=== PATIENT | male | born 1945 | race Caucasian/White ===

== ENCOUNTER 2023-06-17 16:29 | Inpatient (IN) | payer OTHER ==
[~2023-06-17] VITALS: Ht 167.6 cm; Wt 49.9 kg
[~2023-06-17 16:29] MED LIST: ALEN70 PO; ASPI81CH PO; CYAN500 PO; DOC250 PO; Depakene250 MG PO; Docu Liqui50 MG/5 ML PO; EXELON1 EACH TD; FOLI1 PO; HYDCHL12.5; Hair, Skin & N1 EACH PO; IBUP800 PO; LEVE500 PO; LISI20 PO; LISI5 PO; LORA1 PO; Lopressor 25 mg25 MG PO; MAPAP16 MG/0.5 PO; MEMA5TAB PO; METO25ER PO; OLAN10 PO; OLAN5 PO; PHENY50CH PO; PRED20 PO; PRED5 PO; QUET25 PO; SODCHL1 PO; THERA-D2000 UNIT PO; THIA100 PO; TRAM50 PO; TRIA15CR3 TOP; UREA TOP; Ultra Mide 25120 ML TOP; VALP250 PO
[2023-06-17 17:18] LABS: BASOPHILS ABSOLUTE AUTO 0.02 K/mm3 (0.00-0.23); BASOPHILS PERCENT AUTO 0 % (0-2); EOSINOPHILS ABSOLUTE AUTO 0.01 K/mm3 (0.00-0.68); EOSINOPHILS PERCENT AUTO 0 % (0-6); Hematocrit 26.3 % (37.0-53.0); Hemoglobin 8.7 g/dL (13.5-17.5); IMMATURE GRAN ABSOLUTE AUTO 0.03 K/mm3 (0.00-0.10); IMMATURE GRAN PERCENT AUTO 0 % (0-1); LYMPHOCYTES ABSOLUTE AUTO 1.01 K/mm3 (0.84-5.20); LYMPHOCYTES PERCENT AUTO 12 % (21-46); MONOCYTES ABSOLUTE AUTO 0.47 K/mm3 (0.16-1.47); MONOCYTES PERCENT AUTO 5 % (4-13); Mean Corpuscular HGB 28.2 pg (26.0-34.0); Mean Corpuscular HGB Conc 33.1 g/dL (31.5-36.5); Mean Corpuscular Volume 85 fL (80-100); Mean Platelet Volume 9.2 fL (9.1-12.4); NEUTROPHILS PERCENT AUTO 82 % (41-73); Platelet Count 221 K/mm3 (150-400); RDW Coefficient Variation 16.1 % (11.7-14.2); RDW Standard Deviation 50.6 fL (35.1-46.3); Red Blood Cell Count 3.08 M/mm3 (4.30-5.90); White Blood Cell Count 8.74 K/mm3 (4.00-11.30)
[2023-06-17 17:52] LABS: Albumin, Blood 2.6 g/dL (3.4-5.0); Albumin/Globulin Ratio 1.1 (0.8-1.8); Bilirubin, Total 0.3 mg/dL (0.1-1.0); Bun/Creatinine Ratio 12.5 (12.0-20.0); Calcium, Blood 8.1 mg/dL (8.5-10.1); Creatinine, Blood 1.36 mg/dL (0.60-1.20); Globulin, Blood 2.4 g/dL (2.2-4.0); Potassium, Blood 4.4 mmol/L (3.5-5.5)
[2023-06-17 19:22] LABS: Prothrombin Time Results 10.5 Sec (9.7-11.5)
[2023-06-17 22:27] VITALS: BP 118/58
[2023-06-17 22:58] LABS: Source, Urine Clean Catch
[2023-06-17 23:08] LABS: Bilirubin, Urine Neg (Neg); Blood, Urine Neg (Neg); Glucose Qualitative, Urine Neg (Neg); Ketones, Urine Neg (Neg); Leukocyte Esterase, Urine Neg (Neg); Nitrite, Urine Neg (Neg); Protein, Urine Neg (Neg); Urobilinogen, Urine NORM (Normal)
[2023-06-17 23:18] LABS: Appearance, Urine Clear (Clear); Color, Urine Yellow (P-Yellow)
[2023-06-18 03:13] VITALS: BP 99/61
[2023-06-18 05:32] LABS: BASOPHILS ABSOLUTE AUTO 0.01 K/mm3 (0.00-0.23); BASOPHILS PERCENT AUTO 0 % (0-2); EOSINOPHILS ABSOLUTE AUTO 0.01 K/mm3 (0.00-0.68); EOSINOPHILS PERCENT AUTO 0 % (0-6); Hematocrit 22.6 % (37.0-53.0); Hemoglobin 7.8 g/dL (13.5-17.5); IMMATURE GRAN ABSOLUTE AUTO 0.01 K/mm3 (0.00-0.10); IMMATURE GRAN PERCENT AUTO 0 % (0-1); LYMPHOCYTES ABSOLUTE AUTO 0.96 K/mm3 (0.84-5.20); LYMPHOCYTES PERCENT AUTO 18 % (21-46); MONOCYTES ABSOLUTE AUTO 0.44 K/mm3 (0.16-1.47); MONOCYTES PERCENT AUTO 8 % (4-13); Mean Corpuscular HGB 28.4 pg (26.0-34.0); Mean Corpuscular HGB Conc 34.5 g/dL (31.5-36.5); Mean Corpuscular Volume 82 fL (80-100); Mean Platelet Volume 9.4 fL (9.1-12.4); NEUTROPHILS ABSOLUTE AUTO 4.06 K/mm3 (1.96-9.15); NEUTROPHILS PERCENT AUTO 74 % (41-73); Platelet Count 257 K/mm3 (150-400); RDW Coefficient Variation 15.8 % (11.7-14.2); RDW Standard Deviation 47.6 fL (35.1-46.3); Red Blood Cell Count 2.75 M/mm3 (4.30-5.90); White Blood Cell Count 5.49 K/mm3 (4.00-11.30)
--- NOTE | 2023-06-18 06:14 | NUR ---
SHIFT SUMMARY PT IS HERE WITH A RIGHT HIP FX AFTER HAVING A GLF. PT HAS SOME BRUISING ON HIS RIGHT QUAKER AND HANDS/WRISTS/FOREARMS, BUT THE REST OF HIS SKIN LOOKS GOOD AND HE IS NOT CURRENTLY ON BLOOD THINNERS. PT HAS HAD SOME URINE RETENTION ISSUES AND WAS STRAIGHT CATHED LAST NIGHT WITH AN OUTPUT OF 550 ML. PT IS ABLE TO URINATE, BUT HIS PVR IS SIGNIFICANT (>592 ML WHEN CATHED AND >344 ML THIS AM AFTER A 250 ML VOID). PT HAS BEEN NPO SINCE MIDNIGHT AWAITING POSSIBLE PROCEDURE. BED IS IN LOWEST POSITION, CALL LIGHT IS WITHIN REACH.
[2023-06-18 06:27] LABS: Magnesium, Blood 1.9 mg/dL (1.6-2.4); Percent Saturation 27.8 % (20.0-50.0)
[2023-06-18 06:28] LABS: Albumin, Blood 2.1 g/dL (3.4-5.0); Bilirubin, Total 0.3 mg/dL (0.1-1.0); Calcium, Blood 7.8 mg/dL (8.5-10.1); Creatinine, Blood 1.15 mg/dL (0.60-1.20); Globulin, Blood 2.1 g/dL (2.2-4.0); Potassium, Blood 4.2 mmol/L (3.5-5.5); Total Protein, Blood 4.2 g/dL (6.4-8.2)
[2023-06-18 07:17] VITALS: BP 113/57
[2023-06-18 14:29] VITALS: BP 122/70
--- NOTE | 2023-06-18 18:06 | NUR ---
SHIFT SUMMARY A/O X3- CURRENTLY AWAITING SURGERY FOR R HIP FX. PATIENT WAS NPO UNTIL ABOUT 2PM AND THIS RN SPOKE WITH DR. LAMBERT WHO WAS UNAWARE THAT THE PATIENT WAS WAITING FOR HER TO TAKE HIM TO THE OR. AT THIS TIME THIS RN WAS ORDERED TO GIVE THE PATIENT FOOD AND LET THIS PATIENT KNOW THAT HE WOULD POTENTIALLY GO TO SURGERY TOMORROW. THIS RN CALLED PATIENTS SON AND MADE HIM AWARE THAT THE PATIENT WOULD NOT BE GOING TODAY. PATIENT VOIDING IN URINAL AND REMAINED BEDREST THROUGHOUT THE SHIFT.
[2023-06-18 19:38] VITALS: BP 95/56
[2023-06-19] VITALS (19 sets, daily range): BP systolic 109–187; BP diastolic 62–126
[2023-06-19 05:29] LABS: Hematocrit 23.4 % (37.0-53.0); Mean Corpuscular HGB 28.3 pg (26.0-34.0); Mean Corpuscular HGB Conc 34.2 g/dL (31.5-36.5); Mean Corpuscular Volume 83 fL (80-100); Mean Platelet Volume 9.3 fL (9.1-12.4); Platelet Count 262 K/mm3 (150-400); RDW Coefficient Variation 15.7 % (11.7-14.2); RDW Standard Deviation 47.9 fL (35.1-46.3); Red Blood Cell Count 2.83 M/mm3 (4.30-5.90); White Blood Cell Count 6.86 K/mm3 (4.00-11.30)
[2023-06-19 05:48] LABS: Bun/Creatinine Ratio 15.4 (12.0-20.0); Calcium, Blood 7.6 mg/dL (8.5-10.1); Creatinine, Blood 0.98 mg/dL (0.60-1.20); Potassium, Blood 4.2 mmol/L (3.5-5.5)
--- NOTE | 2023-06-19 06:17 | NUR ---
SHIFT SUMMARY PT IS HERE FOR A RIGHT HIP FX FROM A GLF AT HOME. PT SHOULD BE GOING TO SURGERY TODAY AND HAS BEEN NPO SINCE MIDNIGHT. AT SHIFT CHANGE, PT WAS UNABLE TO URINATE. BLADDER SCAN PERFORMED AND SHOWED 561 ML HOLDING IN THE PT'S BLADDER. STRAIGHT CATH PERFORMED AND 400 ML OF URINE WAS ABLE TO COME OUT. AT 0510, PT WAS ABLE TO VOID 325 ML AND HIS PVR WAS ONLY 203 ML. PAIN WELL CONTROLLED WITH EMAR. VITAL SIGNS HAVE BEEN STABLE WITH NO ACUTE EVENTS OCCURRING OVERNIGHT. BED IS IN LOWEST POSITION, CALL LIGHT IS WITHIN REACH.
--- NOTE | 2023-06-19 11:24 | NUR ---
Pt resting in bed upon arrival. Pt is A&OX2. Pt unable to verbalize correct reason for hospital stay, and unable to verbalize correct year. Pt appears mildly agitated and states "I'm not wanting to answer questions right now". Ended visit to allow Pt to rest. Spoke with Primary RN and discussed case. Pt scheduled for surgery today. Pt's son is possibly at work today and plan is to for her to call son and provide update on plan. Spoke with RN Ways Operator Daryl and discussed case. Plan: [facility] planning with family when they arrive to visit.
--- NOTE | 2023-06-19 16:12 | NUR ---
PT IS VERY RESTLESS ATTEMPTING TO CALM HIM / RELAX HIM WONDERING IF PAIN RELATED AND UNABLE TO VOICE THAT IT IS PAIN . A LITTLE CALMER ONCE MEDICATED HE CAN TELL ME WHERE HE LIVES NOW HOLDING MY HAND
--- NOTE | 2023-06-19 16:54 | NUR ---
ASSUMED CARE FROM TJ, PATIENT BACK FROM PACU AT 1640. ON 2L NC, SATS ABOVE 93%. LUNG SOUNDS CLEAR AND DIMINSHED. AQUACEL TO R HIP C/D/I. CLEAN ATTENDS AND GOWN IN PLACE. IVF RUNNING. VSS. BED ALARM FOR SAFETY AND CALL LIGHT IN REACH.
[2023-06-20 02:05] VITALS: BP 151/88
[2023-06-20 05:09] LABS: Mean Corpuscular HGB 28.5 pg (26.0-34.0); Mean Corpuscular HGB Conc 34.6 g/dL (31.5-36.5); Mean Corpuscular Volume 82 fL (80-100); Mean Platelet Volume 9.5 fL (9.1-12.4); Platelet Count 307 K/mm3 (150-400); RDW Coefficient Variation 15.1 % (11.7-14.2); RDW Standard Deviation 45.6 fL (35.1-46.3); Red Blood Cell Count 3.16 M/mm3 (4.30-5.90); White Blood Cell Count 7.38 K/mm3 (4.00-11.30)
[2023-06-20 05:32] LABS: Bun/Creatinine Ratio 13.4 (12.0-20.0); Calcium, Blood 7.5 mg/dL (8.5-10.1); Creatinine, Blood 0.9 mg/dL (0.60-1.20)
[2023-06-20 07:04] VITALS: BP 186/101
--- NOTE | 2023-06-20 08:19 | NUR ---
SHIFT SUMMARY NOC. PT A/O X3 THIS SHIFT. PT UNAWARE OF DATE/TIME. PT MEDICATED FOR PAIN WITH RELIEF OF SX. PT VERY RESTLESS AND FIDGITS WITH BLANKETS. PT'S AQUACEL IS C/D/I WITH SCANT DRAINAGE ON DRESSING. PT RESTED WITH VERY SHORT BRIEF PERIODS OF REST. PT AWAKE MOST OF THE NIGHT. PT HAD A SITTER FOR SAFTEY AND CALL LIGHT IN REACH.
--- NOTE | 2023-06-20 10:15 | NUR ---
18G L WRIST IV REMOVED R/T INFILTRATION. CATHETER INTACT AT TIME OF REMOVAL. SOME REDNESS PRESSENT TO L WRIST. 18G LFA IV REMOVED R/T LEAKING. CATHETER INTACT AT TIME OF REMOVAL.
[2023-06-20] MEDS ORDERED: PHENY50CH PO (10:43)
[2023-06-20] MEDS ORDERED: B COMPLEX FORM0.4 MG PO (15:05)
[2023-06-20 17:28] VITALS: BP 120/62
--- NOTE | 2023-06-20 18:28 | NUR ---
SHIFT SUMMARY PT IS POD#1 FROM R HIP PINNING. PAIN HAS BEEN MANAGED WITH TYLENOL. PT HAS REQUIRED ASSISTANCE REPOSITIONING. PT HAS TOLERATED MEALS BUT DOES NOT LIKE THE PUREE DIET. HOME MEDICATION LIST UPDATED AND DISCUSSED CHANGES WITH DR. QUINONEZ TODAY. PT AWAKE AND RESTING IN BED, CALL LIGHT WITHIN REACH, BED ALARM IN PLACE.
[2023-06-20 19:29] VITALS: BP 96/63
[2023-06-21] VITALS (7 sets, daily range): BP systolic 90–131; BP diastolic 57–111
--- NOTE | 2023-06-21 04:49 | NUR ---
SHIFT SUMMARY NOC. PT S/P RIGHT HIP PINNING. A/O X3 THIS SHIFT. PT DENIED PAIN AT SITE. PT RESTLESS AFTER HAVING A BM, PT HAD 4 BM'S THIS SHIFT. PT'S AQUACEL WAS CHANGED THIS SHIFT AND IS C/D/I. PT RESTED WITH CALL LIGHT IN REACH AND BED ALARM ON FOR SAFETY.
[2023-06-21 05:32] LABS: BASOPHILS ABSOLUTE AUTO 0.02 K/mm3 (0.00-0.23); BASOPHILS PERCENT AUTO 0 % (0-2); EOSINOPHILS ABSOLUTE AUTO 0.07 K/mm3 (0.00-0.68); EOSINOPHILS PERCENT AUTO 1 % (0-6); Hematocrit 24.5 % (37.0-53.0); Hemoglobin 8.5 g/dL (13.5-17.5); IMMATURE GRAN ABSOLUTE AUTO 0.02 K/mm3 (0.00-0.10); IMMATURE GRAN PERCENT AUTO 0 % (0-1); LYMPHOCYTES ABSOLUTE AUTO 1.16 K/mm3 (0.84-5.20); LYMPHOCYTES PERCENT AUTO 16 % (21-46); MONOCYTES ABSOLUTE AUTO 0.61 K/mm3 (0.16-1.47); MONOCYTES PERCENT AUTO 9 % (4-13); Mean Corpuscular HGB 28.6 pg (26.0-34.0); Mean Corpuscular HGB Conc 34.7 g/dL (31.5-36.5); Mean Corpuscular Volume 83 fL (80-100); Mean Platelet Volume 9.5 fL (9.1-12.4); NEUTROPHILS ABSOLUTE AUTO 5.23 K/mm3 (1.96-9.15); NEUTROPHILS PERCENT AUTO 74 % (41-73); Platelet Count 331 K/mm3 (150-400); RDW Standard Deviation 44.7 fL (35.1-46.3); Red Blood Cell Count 2.97 M/mm3 (4.30-5.90); White Blood Cell Count 7.11 K/mm3 (4.00-11.30)
[2023-06-21 05:59] LABS: Bun/Creatinine Ratio 18.7 (12.0-20.0); Calcium, Blood 7.6 mg/dL (8.5-10.1); Creatinine, Blood 0.96 mg/dL (0.60-1.20); Percent Saturation 23.3 % (20.0-50.0); Potassium, Blood 4.1 mmol/L (3.5-5.5)
--- NOTE | 2023-06-21 18:37 | NUR ---
SHIFT SUMMARY PATIENT A/O X3 THIS SHIFT. POD2 R HIP PINNING. AQUACEL C/D/I. HAVING INCONTINENCE AND LOOSE STOOLS TODAY. TOLERATED DIET. PAIN MANAGED W/ TYLENOL. VSS. UP TO CHAIR W/ THERAPY. WILL REPORT TO ONCOMING RN.
[2023-06-22 03:01] VITALS: BP 119/65
--- NOTE | 2023-06-22 06:46 | NUR ---
SHIFT SUMMARY NOC. PT A/O X3 THIS SHIFT. PT VOIDING AND TOLERATING PO INTAKE. PT MEDICATED FOR PAIN WITH RELIEF OF SX. PT BLOOD PRESSURE WAS 90 SBP AT TIMES, ENCOURAGED PO INTAKE AND SAW IMPROVEMENT IN BP. PT RESTED WITH EYES CLOSED, BED ALARM SET, AND CALL LIGHT IN REACH.
[2023-06-22 07:18] VITALS: BP 140/84
[2023-06-22 15:49] VITALS: BP 103/58
--- NOTE | 2023-06-22 18:01 | NUR ---
SHIFT SUMMARY PATIENT A/O X3 THROUGHOUT THE SHIFT. POD3 R HIP FIXATION- AQUACEL C/D/I. TOLERATING PO INTAKE, NO REPORTED N/V. VOIDING WELL. PAIN MANAGED W/ PO PAIN MEDICATIONS THROUGHOUT THE SHIFT. VITAL SIGNS STABLE. WILL REPORT TO ONCOMING RN.
[2023-06-22 19:58] VITALS: BP 111/71
[2023-06-23 02:26] VITALS: BP 106/71
--- NOTE | 2023-06-23 04:54 | NUR ---
SKIN PT NEEDED IN ATTENS CHANGES. DURING CHANGE, THERE WAS A REDENNED AREA VISUALIZED ON HIS COCCYX. IT IS ABOUT QUARTER SIZED AND BLANCHABLE. I PLACED A MEPILEX ON THIS AREA. PT ROLLED & TOLERATED PLACEMENT WELL. HIPS FLOATED WITH A PILLOW UNDER BILAT HIPS.
--- NOTE | 2023-06-23 04:57 | NUR ---
SHIFT SUMMARY POD 4 R HIP PINNING. NO ACUTE CHANGES OVERNIGHT. VS WNL FOR PT. TOLERATING ORALS. FOLLOWS COMANDS WELL. DOES NOT USE CALL LIGHT APPROPRIATELY. INCONTINENT, ATTENS IN PLACE. REPOSITIONS EASILY, PT OFTEN REPOSITIONS HIMSELF TO HIS RIGHT SIDE WITH LEGS CURLED UP AND UPPER BODY HUNCHED FORWARD. REPORTS NO PAIN THIS SHIFT. PT RECEIVED FREQUENT REPOSITIONING. SKIN UPDATE PER PREVIOUS NOTE. CALL LIGHT WITHIN REACH, BED IN LOWEST POSITION c ALARM ON, WILL REPORT TO DAY RN.
[2023-06-23 05:11] LABS: BASOPHILS ABSOLUTE AUTO 0.03 K/mm3 (0.00-0.23); BASOPHILS PERCENT AUTO 0 % (0-2); EOSINOPHILS ABSOLUTE AUTO 0.04 K/mm3 (0.00-0.68); EOSINOPHILS PERCENT AUTO 0 % (0-6); Hematocrit 28.2 % (37.0-53.0); Hemoglobin 10.2 g/dL (13.5-17.5); IMMATURE GRAN ABSOLUTE AUTO 0.02 K/mm3 (0.00-0.10); IMMATURE GRAN PERCENT AUTO 0 % (0-1); LYMPHOCYTES ABSOLUTE AUTO 1.33 K/mm3 (0.84-5.20); LYMPHOCYTES PERCENT AUTO 14 % (21-46); MONOCYTES ABSOLUTE AUTO 0.95 K/mm3 (0.16-1.47); MONOCYTES PERCENT AUTO 10 % (4-13); Mean Corpuscular HGB 28.9 pg (26.0-34.0); Mean Corpuscular HGB Conc 36.2 g/dL (31.5-36.5); Mean Corpuscular Volume 80 fL (80-100); Mean Platelet Volume 9.1 fL (9.1-12.4); NEUTROPHILS ABSOLUTE AUTO 6.86 K/mm3 (1.96-9.15); NEUTROPHILS PERCENT AUTO 74 % (41-73); Platelet Count 494 K/mm3 (150-400); RDW Coefficient Variation 15.2 % (11.7-14.2); RDW Standard Deviation 44.5 fL (35.1-46.3); Red Blood Cell Count 3.53 M/mm3 (4.30-5.90); White Blood Cell Count 9.23 K/mm3 (4.00-11.30)
[2023-06-23 05:53] LABS: Creatinine, Blood 0.9 mg/dL (0.60-1.20); Potassium, Blood 4.4 mmol/L (3.5-5.5)
[2023-06-23 07:19] VITALS: BP 120/78
[2023-06-23 14:27] VITALS: BP 121/69
--- NOTE | 2023-06-23 17:34 | NUR ---
REPORT GIVEN TO [facility]. PATIENT TRANSPORTED VIA GURNEY. NO IVS TO TAKE OUT. ATTENDS CHANGE AND DRESSING CHANGED PRIOR TO TRANSFER.
== END 2023-06-23 17:31 | DRG 480 ==
LOC: ER 16:29 → SURS 16:30
PROVIDERS: Emergency Medicine; Internal Medicine; Orthopaedic Surgery Sports Medicine; Student in an Organized Health Care Education/Training Program; ADMIT Student in an Organized Health Care Education/Training Program
PROC: 0QH634Z Insertion of Internal Fixation Device into Right Upper Femur, Percutaneous Approach (ICD-10-PCS; principal; 2023-06-19 14:00)
DX: S72.001A Fracture of unspecified part of neck of right femur, initial encounter for closed fracture (principal); E43 Unspecified severe protein-calorie malnutrition; G92.8 Other toxic encephalopathy; E87.1 Hypo-osmolality and hyponatremia; Z68.1 Body mass index [BMI] 19.9 or less, adult; W18.39XA Other fall on same level, initial encounter; Y92.009 Unspecified place in unspecified non-institutional (private) residence as the place of occurrence of the external cause; Z66 Do not resuscitate; S00.83XA Contusion of other part of head, initial encounter; I12.9 Hypertensive chronic kidney disease with stage 1 through stage 4 chronic kidney disease, or unspecified chronic kidney disease; D63.1 Anemia in chronic kidney disease; N18.31 Chronic kidney disease, stage 3a; F10.26 Alcohol dependence with alcohol-induced persisting amnestic disorder; G40.909 Epilepsy, unspecified, not intractable, without status epilepticus; F03.90 Unspecified dementia, unspecified severity, without behavioral disturbance, psychotic disturbance, mood disturbance, and anxiety; T40.605A Adverse effect of unspecified narcotics, initial encounter; T43.595A Adverse effect of other antipsychotics and neuroleptics, initial encounter; R73.9 Hyperglycemia, unspecified; E16.2 Hypoglycemia, unspecified; Z86.73 Personal history of transient ischemic attack (TIA), and cerebral infarction without residual deficits; Z88.0 Allergy status to penicillin; Z88.8 Allergy status to other drugs, medicaments and biological substances; Z79.83 Long term (current) use of bisphosphonates; Z87.891 Personal history of nicotine dependence
CPT/HCPCS: 36415; 51701; 70450; 72125; 73502; 80048; 80053; 81003; 82728; 82947; 83540; 83550; 83735; 85025; 85027; 85610; 85730; 86850; 86900; 86901; 93005; 93010; 96374; 97110; 97110-CQ; 97162; 97530; 99285-25; A9270; C1713; C1769; G0378; J1100; J2270; J2371; J2405; J2704; J3010; J7042; J7120

== ENCOUNTER 2024-02-21 09:44 | Emergency (ER) | payer OTHER ==
[~2024-02-21] VITALS: Ht 167.6 cm; Wt 59.0 kg
[~2024-02-21 09:44] MED LIST changes: +ACET500 PO; +B COMPLEX FORM0.4 MG PO; +LOSA25 PO; +MIRT15 PO; +Prinivil10 MG PO; +SENN187 PO; +VITAMIN D325 MC3 PO
[2024-02-21] MEDS ORDERED: Ondansetron HCl 2 MG / ML 2ML Vial IV ONE (09:55)
[2024-02-21] MEDS ORDERED: Lidocaine 4% 1 Patch TOP ONE (09:55)
[2024-02-21] MEDS ORDERED: Ketorolac Tromethamine 30mg Vial IM ONE (10:15)
[2024-02-21 15:00] VITALS: BP 94/63
== END 2024-02-21 15:33 | disposition home or self-care (01) ==
LOC: ER 09:44
DX: S32.049A Unspecified fracture of fourth lumbar vertebra, initial encounter for closed fracture (principal); S32.059A Unspecified fracture of fifth lumbar vertebra, initial encounter for closed fracture; S22.009A Unspecified fracture of unspecified thoracic vertebra, initial encounter for closed fracture; T17.928A Food in respiratory tract, part unspecified causing other injury, initial encounter; I10 Essential (primary) hypertension; X58.XXXA Exposure to other specified factors, initial encounter; Z86.73 Personal history of transient ischemic attack (TIA), and cerebral infarction without residual deficits; Z79.899 Other long term (current) drug therapy; Z88.0 Allergy status to penicillin; Z88.8 Allergy status to other drugs, medicaments and biological substances
CPT/HCPCS: 71046; 72100; 96372-59; 96374; 99283-25; A9270; J1885

== ENCOUNTER 2024-06-25 13:17 | Emergency (ER) | payer MEDICARE, OTHER ==
[~2024-06-25] VITALS: Ht 167.6 cm; Wt 43.5 kg
[2024-06-25] MEDS ORDERED: NS 1,000 ML IV SCH ×2 (13:45→15:35)
[2024-06-25] MEDS ORDERED: Acetaminophen 500 MG Tab PO ONE (13:45)
[2024-06-25 13:47] LABS: BASOPHILS ABSOLUTE AUTO 0.06 K/mm3 (0.00-0.23); BASOPHILS PERCENT AUTO 1 % (0-2); EOSINOPHILS ABSOLUTE AUTO 0.03 K/mm3 (0.00-0.68); EOSINOPHILS PERCENT AUTO 0 % (0-6); Hematocrit 35.1 % (37.0-53.0); Hemoglobin 11.7 g/dL (13.5-17.5); IMMATURE GRAN ABSOLUTE AUTO 0.03 K/mm3 (0.00-0.10); IMMATURE GRAN PERCENT AUTO 0 % (0-1); LYMPHOCYTES ABSOLUTE AUTO 1.11 K/mm3 (0.84-5.20); LYMPHOCYTES PERCENT AUTO 10 % (21-46); MONOCYTES ABSOLUTE AUTO 1.43 K/mm3 (0.16-1.47); MONOCYTES PERCENT AUTO 12 % (4-13); Mean Corpuscular HGB 29.6 pg (26.0-34.0); Mean Corpuscular HGB Conc 33.3 g/dL (31.5-36.5); Mean Corpuscular Volume 89 fL (80-100); Mean Platelet Volume 9.3 fL (9.1-12.4); NEUTROPHILS ABSOLUTE AUTO 8.93 K/mm3 (1.96-9.15); NEUTROPHILS PERCENT AUTO 77 % (41-73); Platelet Count 318 K/mm3 (150-400); RDW Coefficient Variation 13.7 % (11.7-14.2); RDW Standard Deviation 44.6 fL (35.1-46.3); Red Blood Cell Count 3.95 M/mm3 (4.30-5.90); White Blood Cell Count 11.59 K/mm3 (4.00-11.30)
[2024-06-25 14:15] LABS: Magnesium, Blood 2.1 mg/dL (1.6-2.4); Phosphorus, Blood 2.7 mg/dL (2.5-4.9)
[2024-06-25 14:16] LABS: Albumin, Blood 3.4 g/dL (3.4-5.0); Albumin/Globulin Ratio 0.8 (0.8-1.8); Bilirubin, Total 0.3 mg/dL (0.1-1.0); Bun/Creatinine Ratio 27.5 (12.0-20.0); Calcium, Blood 9.4 mg/dL (8.5-10.1); Creatinine, Blood 1.2 mg/dL (0.60-1.20); Potassium, Blood 4.2 mmol/L (3.5-5.5); Total Protein, Blood 7.4 g/dL (6.4-8.2)
[2024-06-25 14:37] LABS: Influenza B, PCR NEGATIVE (NEGATIVE); Resp Syncytial Virus, PCR NEGATIVE (NEGATIVE); SARS-Cov-2 (COVID-19) PCR, MMC NEGATIVE (NEGATIVE)
[2024-06-25 14:42] LABS: Influenza A, PCR POSITIVE (NEGATIVE)
[2024-06-25 15:30] VITALS: BP 120/81
[2024-06-25] MEDS ORDERED: ACET500 PO (16:39)
[2024-06-25] MEDS ORDERED: OSEL75CA PO (16:39)
== END 2024-06-25 18:45 | disposition home or self-care (01) ==
LOC: ER 13:17
PROVIDERS: Emergency Medicine
DX: S32.028A Other fracture of second lumbar vertebra, initial encounter for closed fracture (principal); R91.1 Solitary pulmonary nodule; J11.1 Influenza due to unidentified influenza virus with other respiratory manifestations; I12.9 Hypertensive chronic kidney disease with stage 1 through stage 4 chronic kidney disease, or unspecified chronic kidney disease; N18.9 Chronic kidney disease, unspecified; F03.90 Unspecified dementia, unspecified severity, without behavioral disturbance, psychotic disturbance, mood disturbance, and anxiety; Z88.0 Allergy status to penicillin; Z88.8 Allergy status to other drugs, medicaments and biological substances; Z79.899 Other long term (current) drug therapy; Z86.73 Personal history of transient ischemic attack (TIA), and cerebral infarction without residual deficits; W05.0XXA Fall from non-moving wheelchair, initial encounter
CPT/HCPCS: 0241U; 36415; 70450; 74177; 80053; 83605; 83735; 84100; 84145; 85025; 96360-59; 96361; 99284-25; A9270; J7030; Q9967

== ENCOUNTER → 2024-08-04 | Outpatient (CLI) | payer MEDICARE, OTHER ==
[~2024-08-04] MED LIST changes: +OSEL75CA PO
== END ==
LOC: LAB 07:33 → LAB SHORT 07:33
DX: L98.8 Other specified disorders of the skin and subcutaneous tissue (principal)
CPT/HCPCS: 88305

== ENCOUNTER → 2024-12-15 | Outpatient (CLI) | payer MEDICARE, OTHER ==
[~2024-12-15] MED LIST changes: +Aspir 8181 MG PO; +BISA10S PR; +BISA5EC PO; +DULCOLAX400 MG/5 M PO; +LOPE2C PO; +MINERAL OIL133 M1 PR; +MIRALAX17 GM PO; +ONDA4 PO
[2024-12-16 08:08] LABS: Source, Urine Clean Catch
[2024-12-16 09:54] LABS: Appearance, Urine Clear (Clear); Bilirubin, Urine Neg (Neg); Blood, Urine Neg (Neg); Color, Urine Yellow (P-Yellow); Glucose Qualitative, Urine Neg (Neg); Ketones, Urine Neg (Neg); Leukocyte Esterase, Urine Neg (Neg); Nitrite, Urine Neg (Neg); Protein, Urine 2+ (Neg); Urobilinogen, Urine NORM (Normal)
[2024-12-16 10:14] LABS: Amorphous Mod (0-Heavy); Bacteria Few /hpf; Granular Casts 0-2 /lpf (0); Red Blood Cells, Urine 0-2 /hpf (0-2); Squamous Epithelial Cells Mod /hpf (Few); White Blood Cells, Urine 0-2 /hpf (0-5)
== END ==
LOC: LAB SHORT 08:05 → LAB 08:05
PROVIDERS: Physician Assistant
DX: N39.0 Urinary tract infection, site not specified (principal)
CPT/HCPCS: 81001